=== PATIENT | female | born 1990 | race Hispanic/Latino ===

== ENCOUNTER 2018-08-28 04:53 | Emergency (ER) | payer SELFPAY ==
[2018-08-28 05:02] VITALS: BP 143/90; TEMP 98.3; O2SAT 98
[2018-08-28 05:14] VITALS: PULSE 111; RESP 16
--- NOTE | 2018-08-28 05:16 | ED PDOC ---
HPI: Psych/Substance Abuse Time Seen by Provider: 08/28/18 05:11 Chief Complaint (Nursing): Alcohol Ingestion Chief Complaint (Provider): Alcohol Ingestion History Per: Patient, EMS History/Exam Limitations: no limitations Additional Complaint(s): 27 years old female brought in by [facility] for intoxication. 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 She states she was told she had to come to ER with no altercation. Patient reports she was with friends all night and does not feel anyone slipped any drugs in her drinks. She states she lives nearby and wants to walk home. Patient denies using drugs. PMD: None provided Past Medical History Reviewed: Historical Data, Nursing Documentation, Vital Signs Vital Signs: Last Vital Signs Temp 98.3 F 08/28/18 04:59 Pulse 16 L 08/28/18 04:59 Resp 111 H 08/28/18 04:59 BP 143/90 08/28/18 04:59 Pulse Ox 98 08/28/18 04:59 - Medical History PMH: No Chronic Diseases - Surgical History Surgical History: No Surg Hx - Family History Family History: States: Unknown Family Hx - Social History Alcohol: Social Drugs: Denies - Allergies Allergies/Adverse Reactions: Allergies Allergy/AdvReac Type Severity Reaction Status Date / Time No Known Allergies Allergy Verified 08/28/18 05:02 Review of Systems ROS Statement: Except As Marked, All Systems Reviewed And Found Negative Psych: Negative for: Other (drug use) Physical Exam - Reviewed Nursing Documentation Reviewed: Yes Vital Signs Reviewed: Yes - Physical Exam Appears: Positive for: Well, No Acute Distress Head Exam: Positive for: ATRAUMATIC, NORMOCEPHALIC Skin: Positive for: Normal Color, Warm, Dry Eye Exam: Positive for: Normal appearance, EOMI, PERRL ENT: Positive for: Normal ENT Inspection Neck: Positive for: Normal, Painless ROM, Supple Cardiovascular/Chest: Positive for: Regular Rate, Rhythm. Negative for: Murmur Respiratory: Positive for: Normal Breath Sounds. Negative for: Wheezing Gastrointestinal/Abdominal: Positive for: Normal Exam, Soft. Negative for: Tenderness Back: Positive for: Normal Inspection. Negative for: L CVA Tenderness, R CVA Tenderness Extremity: Positive for: Normal ROM. Negative for: Pedal Edema, Deformity Neurological/Psych: Positive for: Awake, Alert, Symmetric/Intact Strength, Oriented (x3), Gait (Steady, ambulatory in heels without deficits). Negative for: Motor/Sensory Deficits, Other (Slurred speech or signs of trauma) - ECG O2 Sat by Pulse Oximetry: 98 (RA) Pulse Ox Interpretation: Normal Medical Decision Making Medical Decision Making: Time: 509 MDM: Intoxication brought in by [facility] --No indication of medical workup --Patient shows no signs of intoxication at this time --Patient to be discharge home. She states she is in walking distance from the hospital Scribe Attestation: Documented by Joann Grant, acting as a scribe for Namrata Cummings MD. Provider Scribe Attestation: All medical record entries made by the Scribe were at my direction and personally dictated by me. I have reviewed the chart and agree that the record accurately reflects my personal performance of the history, physical exam, medical decision making, and the department course for this patient. I have also personally directed, reviewed, and agree with the discharge instructions and disposition. Disposition - Clinical Impression Clinical Impression: Alcohol abuse with intoxication - Disposition Referrals: Alcoholics Anonymous [Outside] Disposition: Routine/Home Disposition Time: 05:10 Condition: STABLE Instructions: Alcohol Abuse and Alcoholism (DC), Effects of Alcohol on Your Health Forms: [employer] (Icelandic)
== END 2018-08-28 05:13 | disposition home or self-care (01) ==
LOC: H.ER 04:53
DX: F10.129 Alcohol abuse with intoxication, unspecified (principal)